=== PATIENT | female | born 2005 | race Caucasian/White ===

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

== ENCOUNTER 2025-04-17 12:58 | Outpatient (AMB) | payer OTHER, SELFPAY ==
--- OUTSIDE RECORDS SUMMARY | 2025-04-17 13:03 | XMS_ITS | Clinical Summary ---
Author Organization [facility] Address [address] [place] [id number] Phone Care Team Providers Care Inventory Specialist Manager Name Role Phone Unavailable Primary Care Provider Unavailabl e Allergies Active Allergy Reactions Criticality Noted Date Comments Environmental 02/21/2018 Medications loratadine (Claritin) 10 MG tabletIndications: Seasonal allergic rhinitis, unspecified trigger Take 1 tablet (10 mg total) by mouth daily. 30 tablet 5 10/28/19 21 Active ondansetron ODT (ondansetron ODT) 4 MG disintegrating tabletIndications: Nausea Take 1 tablet (4 mg total) by mouth every 8 (eight) hours as needed for nausea or vomiting for up to 30 doses. 30 tablet 08/22/19 22 Active Additional Information Patient not taking.Reported on 05/19/2022 albuterol HFA 108 (90 Base) MCG/ACT inhalerIndications :Reactive depression Inhale 2 puffs every 4 (four) hours as needed for wheezing or shortness of breath. 1 Units 1 09/16/19 22 Active Additional Information Patient not taking.Reported on 05/19/2022 escitalopram (Lexapro) 10 MG tabletIndications: Anxiety Take 1 tablet (10 mg total) by mouth every morning. 30 tablet 1 08/11/19 23 Active traZODone 50 MG tabletIndications: Other insomnia TAKE 1/2 TABLET(25 MG) BY MOUTH EVERY NIGHT 15 tablet 09/11/19 23 Active Active Problems Problem Noted Date Diagnosed Date Acute bilateral low back pain without sciatica 1 09/04/2020 Assessment & Plan (07/04/2021 9:20 AM EST): Discussed doing sit ups and plank and leg lifts. Stretching. Generalized abdominal pain 07/04/2021 Assessment & Plan (07/04/2021 9:18 AM EST): Tagamet and Tums OTC. Acquired hammer toe of right foot 2021 Depression 2021 Assessment & Plan (05/01/2022 12:16 PM EDT): Madhu still feels depressed and anxious. She is stressed about school. She was taking the medicine. But somehow her therapist convinced her that it was not working.... but neither mother or Madhu are convinced it helped. We discussed anxiety and the self treatment with CBD and THC. I am understanding the thought, but not confident this is a good treatment. I do suggest they rethink using medication again, and perhaps restarting a different therapist. If we restart we could do celexa as an alternative. F/u prn Assessment & Plan (09/16/2021 4:04 PM EST): She is still having depression and anxiety, but it is much better with the medication. She has a therapist. She will continue on her medication. I have suggest to do things/activities. Otherwise will see her at her PE. Assessment & Plan (2021 3:12 PM EST): I think we are headed the right direction. I suggest to continue on the dose of 25 mg and t recheck in 4 weeks. Call if worsening symptoms or problems. Resolved Problems Problem Noted Date Diagnosed Date Resolved Date Syncope due to orthostatic hypotension 04/09/2020 05/17/2021 Assessment & Plan (04/09/2020 3:27 PM EDT): We discussed her weight loss over the last year. 40 lbs is a lot. She also has been readjusting her sleep pattern. She had woken up earlier than usual, had not eaten anything since the prior day, and had been going up and down stairs from attic to basement and back. Her BP was most likely effected. We discussed eating habits and drinking enough water. Reactive lymphadenopathy 01/16/2020 Assessment & Plan (01/16/2020 2:00 PM EDT): History and physical exam consistent with a reactive lymph node. Reassured patient that at this time I do not have a concern for an infectious or immune system issue. Discussed that this should resolve with time on its own. Reviewed to call back into the office for persistent fevers, redness/swelling/tenderness in this area, or increased swelling of lymph node. Overweight (BMI 25.0-29.9) 03/20/2019 0 03/27/2020 Assessment & Plan (03/20/2019 8:33 AM EDT): BMI over the 85% and more so over the 95% places patient at increased risk for development of diabetes, cardiovascular disease and kidney disease. Discussed these things in this visit. Discussed importance of being active 30 minutes every day. Talked about portion sizes. Discussed cutting out juice and soda. Given thumbs up nutritional information booklet. Will screen for cholesterol, diabetes and elevated liver transaminases. Other acute sinusitis 11/20/20172017 Overview (02/21/2018): Acute sinusitis, other (461.8) Onset: 11/20/2017 Added by: Isaias Slade Acute pharyngitis 11/13/2017 02/21/2018 Overview (02/21/2018): Acute pharyngitis (462) Onset: 11/13/2017 Added by: Isaias Slade Urinary frequency 09/21/2016 02/21/2018 Overview (02/21/2018): Urinary frequency (788.41) Onset: 09/21/2016 Added by: Miya Roland Dysuria 06/09/2015 02/21/2018 Overview (02/21/2018): Dysuria (788.1) Onset: 06/09/2015 Added by: Rosa Valenzuela Disorder of teeth and supporting structures 09/09/2014 02/21/2018 Overview (02/21/2018): Toothache (525.9) Onset: 09/09/2014 Added by: Dorota Gonzalez 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 Overview (02/21/2018): Dry skin (701.1) Onset: 06/29/2014 Added by: Ade Pappas Pneumonia due to other specified organism 11/05/2012 02/21/2018 Overview (02/21/2018): Pneumonia, NEC (483.8) Onset: 11/05/2012 Added by: Shellie Lucas Immunizations Immunization Administration Dates Next Due COVID-19 Pfizer, monovalent, 12+ years 1 DTaP / Hep B / IPV 2004,2004 DTaP 5 08/02/2009,12/12/2005,2004 H1N1 Inj 08/02/2009 HPV Vaccine 9 Valent 06/28/2016,02/24/2016,12/22 Hep A, ped/adol 03/19/2019,02/21/2018 Hep B, ped/adol 2004 Hib (PRP-T) 12/12/2005, 5,2004,08/15 IPV 08/02/2009, 5,2004,08/15 Influenza, injectable, quadr ivalent, preservative free 05/19/2022,05/17/2021,12/11/2014,06/20 Influenza, injectable, trivalent 011,08/02/2009,07/31/2007,06/27 Influenza, injectable, triva lent, preservative free 06/07/2013 MMR 08/02/2009,06/29/2005 Meningococcal Conj (Menactra) MCV4P 05/17/2021,0 12/23/2015 Pneumococcal Conjugate 10/11/2005,2004,2004,08/15 Tdap 12/23/2015 Varicella 08/02/2009,10/11/2005 Family History Medical History Relation Name Comments No Known Problems Father [place] No Known Problems Mother josh Cancer Paternal Grandfather No Known Problems Sister 1 shaheen No Known Problems Sister 2 Karissai Relation Name Status Comments Father [place] Alive Mother josh Alive Paternal Grandfather Alive Sister 1 shaheen Alive Sister 2 Emmieceli Alive Social History Tobacco Use Types Packs/Day Years Used Date Smoking Tobacco: Never Smokeless Tobacco: Never Comments:Never Smoker Hunger/Food Answer Date Recorded In the last 12 months, did y ou or your family ever eat less than you felt you should because there wasn't enough money for food? No 05/19/2022 Stable Housing Answer Date Recorded Are you worried that in the next 2 months you may not have stable housing? No 05/19/2022 Transportation Concerns Answer Date Rec orded In the last 12 months, have you or your family ever had to go without healthcare because you didn't have a way to get there? No 05/19/2022 Hazards in Home Answer Date Recorded Think about the place you li ve. Do you have problems with any of the following? Pests (mice or roaches), mold, no/not working smoke detectors, water leaks, no window guards. No 2021 Financing Utilities Answer Date Recorde d In the last 12 months, has t he electric, gas, oil, or water company threatened to shut off your services in your home? No 05/19/2022 Safety at Home Answer Date Recorded Are you or your family worried about feeling saf e in your home? No 05/19/2022 Outside Support Answer Date Recorded Do you feel that you need mo re support from other people or programs to help you care for yourself or your family? No 05/19/2022 Understanding Health Concerns Answer Da te Recorded Do you need help understandi ng your or your child's healthcare needs (diagnosis, medications, plan, etc.)? No 05/19/2022 Financing Health Concerns Answer Date R ecorded In the last 12 months, was t here a time when your child needed to see a doctor or get medications or supplies but could not because of cost? No 05/19/2022 Missing School or Work Answer Date Miguel rded Did you or your child miss s chool or work because of a health problem that could have been avoided? No 05/19/2022 Comments No Sex and Gender Information Value Date Recorded Sex Assigned at Not on file Legal Sex Female 6:23 PM EDT Gender Identity Not on file Sexual Orientation Not on file Last Filed Vital Signs Vital Sign Reading Time Taken Comments Blood Pressure 112/60 08/11/2022 1:48 PM EST Pulse 53 08/11/2022 1:48 PM EST Temperature 36.3 C (97.3 F) 08/11/2022 1:48 PM EST Respiratory Rate - - Oxygen Saturation - - Inhaled Oxygen Concentration - - Weight 74.1 kg (163 lb 4.8 oz) 08/11/2022 1:48 P M EST Height 167 cm (5' 5.75 ) 08/11/2022 1:48 PM EST Body Mass Index 26.56 08/11/2022 1:48 PM EST Plan of Treatment Health Maintenance Due Date Last Done Comments Men B Vaccine (1 of 2 - Standard) 2020 Influenza Vaccines (#1) 2025 05/19/20 22, 05/17/2021, 12/11/2014, Additional history exists COVID-19 Vaccine (3 - 2024-2 6 season) 2025 03/02/2021, 02/09/2021 DTaP,Tdap,and Td Vaccines (7 - Td or Tdap) 12/22/2025 12/23/2015, 08/02/2009, 12/12/2005, Additional history exists Hepatitis B Vaccines Completed 2004, 2004, 2004 Pneumococcal Vaccine Completed 10/11/2005, 2004, 2004, Additional history exists HIB Vaccines Completed 12/12/2005, 11/28, 2004, Additional history exists IPV Vaccines Completed 08/02/2009, 11/28, 2004, Additional history exists MMR Vaccines Completed 08/02/2009, 06/29/2005 Varicella Vaccines Completed 08/02/2009, 10/11/2005 HPV Vaccines Completed 06/28/2016, 01/28, 12/23/2015 Hepatitis A Vaccines Completed 03/19/2019, 02/22/20 18 Meningococcal Vaccine Completed 05/17/2021, 016 Procedures * Due to [place] [employer] law, this organization might not be sharing sensitive test results. Procedure Name Priority Date/Time Associated Diagnosis Comments CHLAMYDIA AND GONORRHEA, AMPLIFIED Routine 05/17/2021 11:36 AM EDT Encounter for routine child health examination without abnormal findings from Last 3 Months or Most Recently Relevant to Health Maintenance Results * Due to [place] [employer] law, this organization might not be sharing sensitive test results. * Chlamydia and Gonorrhea, Amplified (05/17/2021 11:36 AM EDT) Chlamydia Trachomatis, DNA Probe NEGATIVE (NEG) [facility] Comment: No Chlamydia Trachomatis RNA detected in this patient's sample (REFERENCE RANGE/NORMAL VALUE: NOT DETECTED) Note: This test uses oil heaterman- mediated amplification method to detect rRNA from C. Trachomatis URINE GC AMP PROBE NEGATIVE (NEG) [facility] Comment: No Neisseria Gonorrhoeae RNA detected in this patient's sample (REFERENCE RANGE/NORMAL VALUE: NOT DETECTED) NOTE: This test uses oil heaterman-mediated amplification method to detect rRNA from N.Gonorrhoeae. A negative result does not preclude infection. In the case of a negative urine result, testing of an endocervical(female) or urethral (male) specimen is recommended if there is high clinical suspicion of infection. Due to very high sensitivity of Nucleic Acid Amplification Test, false positive results may occur. Therefore, specimen handling is extremely important. In patients in whom the disease is unlikely, additional sample for testing should be considered after an initial positive result. The performance characteristics of this test have not been evaluated in children. The Aptima Combo2 assay is not intended for the evaluation of suspected sexual abuse or for other medico-legal indications. The ordering provider should assess if the patient had consensual sex without risk of sexual abuse. Consult the [facility] if needed. Contact phone number . Therapeutic failure or success cannot be determined with the Aptima Combo2 assay since nucleic acid may persist following appropriate antimicrobial therapy. The Centers for Disease Control and Prevention (CDC) recommends confirmatory retesting using culture or a different nucleic acid amplification test when positive results occur, if indicated. Testing performed or reported by [facility], a Service of [facility], [facility] [address], [place] [address] Kentrell Burr MD, Block Layer [facility]# [id number] Urine (Vagina) 05/17/2021 11 :36 AM EDT 05/17/2021 8:31 PM EDT us Isaias Slade MD LAB MICROBIOLOGY - GENERAL ORDER NEAL Final Result [facility] from Last 3 Months or Most Recently Relevant to Health Maintenance
--- OUTSIDE RECORDS SUMMARY | 2025-04-17 13:03 | XMS_ITS | Encounter Summary ---
Author Organization [facility] Address [address] [place] [id number] Phone Care Team Providers Care Beer Brewer Name Role Phone Isaias Slade MD Primary Care Provider [phone] Encounter Details Date Type Department Care Team (Late st Contact Info) Description 06/13/2011 Conversion Encounter [facility] [address] [place] [address] Social History Tobacco Use Types Packs/Day Years Used Date Smoking Tobacco: Never Assessed Comments Unknown Sex and Gender Information Value Date Recorded Sex Assigned at Not on file Legal Sex Female 6:23 PM EDT Gender Identity Not on file Sexual Orientation Not on file documented as of this encounter Plan of Treatment Not on file documented as of this encounter Visit Diagnoses Not on filedocumented in this encounter Care Teams Beer Brewer Relationship Specialty Start Date End Date Isaias Slade MD [address] [place] [address] PCP - General 12/05/17 10/05/24 documented as of this encounter
--- OUTSIDE RECORDS SUMMARY | 2025-04-17 13:03 | XMS_ITS | Encounter Summary ---
Author Organization [facility] Address [address] [place] [phone] Phone Care Team Providers Care Government Relations Manager Name Role Phone Isaias Slade MD Primary Care Provider [phone] Reason for Visit * Reason Comments Med Refill Encounter Details Date Type Department Care Team ([facility] st Contact Info) Description 09/18/2021 Refill [facility] [address] [place] [address] [place] [address] Isaias Slade MD [address] [place] [address] [place] [address] Social History Tobacco Use Types Packs/Day Years Used Date Smoking Tobacco: Never Smokeless Tobacco: Never Comments:Never Smoker Hunger/Food Answer Date Recorded In the last 12 months, did y ou or your family ever eat less than you felt you should because there wasn't enough money for food? No 03/24/2020 Stable Housing Answer Date Recorded Are you worried that in the next 2 months you may not have stable housing? No 03/24/2020 Transportation Concerns Answer Date Rec orded In the last 12 months, have you or your family ever had to go without healthcare because you didn't have a way to get there? No 03/24/2020 Hazards in Home Answer Date Recorded Think about the place you li ve. Do you have problems with any of the following? Pests (mice or roaches), mold, no/not working smoke detectors, water leaks, no window guards. No 2019 Financing Utilities Answer Date Recorde d In the last 12 months, has t he electric, gas, oil, or water company threatened to shut off your services in your home? No 03/24/2020 Safety at Home Answer Date Recorded Are you or your family worried about feeling saf e in your home? No 03/24/2020 Outside Support Answer Date Recorded Do you feel that you need mo re support from other people or programs to help you care for yourself or your family? No 03/24/2020 Understanding Health Concerns Answer Da te Recorded Do you need help understandi ng your or your child's healthcare needs (diagnosis, medications, plan, etc.)? No 03/24/2020 Financing Health Concerns Answer Date R ecorded In the last 12 months, was t here a time when your child needed to see a doctor or get medications or supplies but could not because of cost? No 03/24/2020 Missing School or Work Answer Date Miguel rded Did you or your child miss s chool or work because of a health problem that could have been avoided? No 03/24/2020 Comments No Sex and Gender Information Value Date Recorded Sex Assigned at Not on file Legal Sex Female 6:23 PM EDT Gender Identity Not on file Sexual Orientation Not on file documented as of this encounter Plan of Treatment Not on file documented as of this encounter Visit Diagnoses Not on filedocumented in this encounter Care Teams Government Relations Manager Relationship Specialty Start Date End Date Isaias Slade MD [facility] [facility] [facility] [place] [address] PCP - General 12/05/17 10/05/24 documented as of this encounter
--- NOTE | 2025-04-17 13:05 | MHC.PC.OV ---
Vital Signs 04/17/25 13:08 Height 5 ft 6.14 in Weight 150 lb 8 oz BMI 24.2 BP 120/60 Blood Pressure Location Lt brachial Position Sitting Pulse 74 Pulse Source Pulse Oximeter Temp 97.1 F Temp Source Temporal Artery Scan Pulse Oximetry (%) 98 Oxygen Delivery Method Room Air Intake Visit Reasons: establish care Intake Note: Patient is a new patient here to [facility] care for Anxiety, Depression. Transferring care from Klarissa Wyatt ([facility]). Medical records have been requested and have not received. Complaint of congestion, cough, and chills, back pain no home test for covid. 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 Coal Picker: Not Required per policy Accompanied by: Self / Same As Patient Allergies No Known Allergies (No Known Allergies*) Allergy (Verified 04/17/25 13:06) Medication List - Last Reconciled 04/17/25 by Helga Peters MD No Known Home Meds Tobacco use date assessed: 04/17/25 Dental Screening Dental Screen Date: 04/17/25 Did you have a dental visit in the last 12 months?: No Did you have a dental problem in the last 6 months where you did not have access to dental care?: No Was dental information given to patient?: Patient has dentist HPI HPI Comments History of Present Illness Details The patient is a 19-year-old female presenting to [facility]. The back pain was reported during the visit, but no specific details regarding onset or severity were provided. The patient also reported congestion and feeling generally unwell since Sunday, with associated chills but no fever. She has been using [id number] medications, including a muscle relaxer and cough medicine, with minimal relief. The patient has a history of depression and anxiety, which began in middle school and has fluctuated over the years. She experienced severe episodes during her freshman and senior years of high school, including suicidal ideation and self-harm. Currently, she reports feeling tired and having difficulty focusing, which she attributes to her ongoing mental health challenges. The patient has been using cannabis daily, primarily at night, and has been attempting to reduce her usage. She denies the use of tobacco and other substances. 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 She has previously tried antidepressants, specifically Lexapro, but discontinued due to initial worsening of symptoms. [facility] Surgical History (Updated 04/17/25 @ 13:16 by CATRACHITO Spence) No pertinent past surgical history Social History (Updated 04/17/25 @ 13:17 by CATRACHITO Spence) Housing: House Alcohol intake: current Alcohol intake frequency: does not drink Alcohol type: hard liquor Patient Tobacco Use Status: Never used Tobacco e-Cigarette/Vaping Use: Never Used Second Hand Smoke Exposure: No Substance Use Type: Marijuana service: No Current occupational status: student Cognitive needs: No Hearing needs: No Vision needs: No Questionnaire PHQ-9 Over the last 2 weeks, how often have you been bothered by any of the following problems? 1. Little interest or pleasure in doing things: nearly every day 2. Feeling down, depressed, or hopeless: nearly every day 3. Trouble falling or staying asleep, or sleeping too much: several days 4. Feeling tired or having little energy: more than half the days 5. Poor appetite or overeating: more than half the days 6. Feeling bad about yourself - or that you are a failure or have let yourself or your family down: nearly every day 7. Trouble concentrating on things, such as reading the newspaper or watching television: nearly every day 8. Moving or speaking so slowly that other people could have noticed. Or the opposite - being so fidgety or restless that you have been moving around a lot more than usual: nearly every day 9. Thoughts that you would be better off or of hurting yourself in some way: nearly every day Total score: 23 Depression Screening Interpretation: Positive Depression Screening Done: Yes Source: Developed by Drs. Cr Fernandez, Akiko Astudillo, Carlos Ovalle and colleagues, with an educational daisy from [employer]. Thrive Questionnaire Date Thrive assessed: 04/17/25 I am a: Patient What is your living situation today?: I have a steady place to live Within the past 12 months, did the food you bought not last and you didn't have the money to get more?: Never true Within the past 12 months, did you worry whether your food would run out before you got money to buy more?: Never true Do you have trouble paying for medicines?: No Do you have trouble getting transportation to medical appointments?: No Do you have trouble paying your heating and electricity bill?: No Do you have trouble taking care of your child, family member or friend?: I choose not to answer this question Do you have trouble with day-to-day activities such as bathing, preparing meals, shopping, managing finances, etc.?: Yes Are you currently unemployed and looking for a job?: Yes Are you interested in more education?: I choose not to answer this question Please select the resources that you would like help with: None Currently or been in a relationship where the following occur: No concerns reported THRIVE Score: 0 AUDIT C Alcohol Use Questionnaire (AUDIT-C) 1. How often do you have a drink containing alcohol?: Never Total Score: 0 DINAH-7 AMB Questionnaire DINAH-7 Date DINAH - 7 assessed: 04/17/25 Feeling nervous, anxious, or on edge: 3 = Nearly every day Not being able to stop or control worryin = Nearly every day Worrying too much about different things: 3 = Nearly every day Trouble relaxin = Nearly every day Being so restless that it is hard to sit still: 3 = Nearly every day Becoming easily annoyed or irritable: 2 = More than half the days Feeling afraid as if something awful might happen: 2 = More than half the days Total DINAH-7 score (0-4 normal; 5-9 mild; 10-14 moderate; 15-21 severe): 19 Source: Developed by Drs. Cr Fernandez, Akiko Astudillo, Carlos Ovalle and colleagues, with an educational daisy from [employer]. Review of Systems Const Details: Positives besides what was mentioned in HPI are in BOLD Constitutional: No Weight Change, No Fever, No Chills, No Night Sweats, No Fatigue, No Malaise ENT/Mouth: No Hearing Changes, No Ear Pain, No Nasal Congestion, No Sinus Pain, No Hoarseness, No sore throat, No Rhinorrhea, No Swallowing Difficulty Eyes: No Eye Pain, No Swelling, No Redness, No Foreign Body, No Discharge, No Vision Changes Cardiovascular: No Chest Pain, No SOB, No PND, No Dyspnea on Exertion, No Orthopnea, No Claudication, No Edema, No Palpitations Respiratory: No Cough, No Sputum, No Wheezing, No Smoke Exposure, No Dyspnea Gastrointestinal: No Nausea, No Vomiting, No Diarrhea, No Constipation, No Pain, No Heartburn, No Anorexia, No Dysphagia, No Hematochezia, No Melena, No Flatulence, No Jaundice Genitourinary: No Dysmenorrhea, No DUB, No Dyspareunia, No Dysuria, No Urinary Frequency, No Hematuria, No Urinary Incontinence, No Urgency, No Flank Pain, No Urinary Flow Changes, No Hesitancy Musculoskeletal: No Arthralgias, No Myalgias, No Joint Swelling, No Joint Stiffness, No Back Pain, No Neck Pain, No Injury History Skin: No Skin Lesions, No Pruritis, No Hair Changes, No Breast/Skin Changes, No Nipple Discharge Neuro: No Weakness, No Numbness, No Paresthesias, No Loss of Consciousness, No Syncope, No Dizziness, No Headache, No Coordination Changes, No Recent Falls Psych: No Anxiety/Panic, No Depression, No Insomnia, No Personality Changes, No Delusions, No Rumination, No SI/HI/AH/VH, No Social Issues, No Memory Changes, No Violence/Abuse Hx., No Eating Concerns Heme/Lymph: No Bruising, No Bleeding, No Transfusions History, No Lymphadenopathy Endocrine: No Polyuria, No Polydipsia, No Temperature Intolerance Physical exam (Primary Care) Vital Signs: Last Vital Signs Temp 97.1 F 04/17/25 13:08 Pulse 74 04/17/25 13:08 BP 120/60 04/17/25 13:08 Pulse Ox 98 04/17/25 13:08 Oxygen Delivery Method Room Air 04/17/25 13:08 BMI result Body Mass Index 24.2 Tobacco/Smoking Status: Tobacco use Status Tobacco use date assessed 04/17/25 04/17/25 13:18 Patient Tobacco Use Status Never used Tobacco 04/17/25 13:18 e-Cigarette/Vaping Use Never Used 04/17/25 13:18 PHQ-9: PHQ-9 Score PHQ-9: Total score 23 04/17/25 13:18 Depression Screening Interpretation: Positive Thrive Assessment: Date of Thrive Assessment Date Thrive assessed 04/17/25 04/17/25 13:18 Currently or been in a relationship where the following occur: No concerns reported Const Other: Pertinent findings are in BOLD GENERAL APPEARANCE NAD, activity normal for age, well developed/ well nourished, no cyanosis, pallor, or diaphoresis. EYES lids/conjunctiva normal. EARS/NOSE/THROAT Mucous membranes moist, nares normal, lips/teeth normal uvula midline without oral pharyngeal erythema, exudate or swelling TMs normal bilaterally. No lymphangitis/lymphedema. HEAD/NECK normocephalic atraumatic, no facial trauma, neck is supple. RESPIRATORY respiratory effort normal, speaks in full sentences, no tripod position, no accessory muscle use. Lungs clear to auscultation without rhonchi, wheezes, rales CARDIAC Regular rate and rhythm, no edema. ABDOMINAL Soft, ND/NT. No evidence of fluid wave. No pulsatile masses on exam, rebound tenderness, Herron sign or pain over Mcburney's point. MUSCLES/EXTREMITIES No abnormal range of motion, no swelling. SKIN Warm, pink and dry. No rashes, dermatoses, petechiae or lesions. NEUROLOGICAL Speech is clear and appropriate. Normal level of consciousness. Gait and coordination are normal. 5/5 strength in all extremities. PSYCH Normal mood and affect. Judgement/competence is appropriate Coding Level of Care Code New Pt Level 4 (41205) Diagnoses Major depressive disorder with single episode, remission status unspecified F32.9 Major depression recurrence: single episode Active/Remission status: remission status unspecified Congestion of nasal sinus R09.81 DINAH (generalized anxiety disorder) F41.1 Healthcare maintenance Z00.00 Assessment & Plan Assessment & Plan (1) MDD (major depressive disorder): Code(s): F32.9 - Major depressive disorder, single episode, unspecified Category: Medical Qualifiers: Major depression recurrence: single episode Active/Remission status: remission status unspecified Qualified Code(s): F32.9 - Major depressive disorder, single episode, unspecified Plan: Bupropion Daily. Referred to behavioral health. Nursing navigator referral. (2) Congestion of nasal sinus: Code(s): R09.81 - Nasal congestion Category: Medical Plan: Most likely viral. CTM. (3) DINAH (generalized anxiety disorder): Code(s): F41.1 - Generalized anxiety disorder Category: Medical Plan: Same as under MDD. (4) Healthcare maintenance: Code(s): Z00.00 - Encounter for general adult medical examination without abnormal findings Category: Medical Plan: CBC, CMP, Lipid panel, A1C, TSH w T4. NExt visit. Patient reports completing COVID. HPV: Next year. HIV: Next visit. HBV: Next visit. HCV: Next visit. Plan During the visit, I discussed the patient's history of depression and anxiety, emphasizing the importance of therapy and considering medication options such as Wellbutrin. I explained the potential benefits and side effects of Wellbutrin, highlighting its role in improving mood and focus. We also discussed the patient's cannabis use and the importance of reducing it. I recommended follow-up in one month to assess the patient's response to any initiated treatments and to adjust the plan as needed. Orders: Referrals Behavioral Health Referral F32.9 - Major depressive disorder, single episode, unspecified, F41.1 - Generalized anxiety disorder Nurse Navigator Referral F32.9 - Major depressive disorder, single episode, unspecified, F41.1 - Generalized anxiety disorder Medications: New bupropion HCl XL (Wellbutrin XL) 150 mg PO QAM 30 tabs 0RF
[2025-04-17 13:08] VITALS: BP 120/60; PULSE 74; TEMP 36.2; O2SAT 98; BMI 24.2
== END 2025-04-17 13:46 | disposition home or self-care (01) ==
LOC: HO.HMCH 13:00
PROVIDERS: Visit Provider Internal Medicine
DX: F32.9 Major depressive disorder, single episode, unspecified (principal); R09.81 Nasal congestion; F41.1 Generalized anxiety disorder; Z00.00 Encounter for general adult medical examination without abnormal findings

== ENCOUNTER 2025-04-24 13:54 | Outpatient (AMB) | payer OTHER, SELFPAY ==
--- NOTE | 2025-04-24 14:05 | MHC.PC.OV ---
Vital Signs 04/24/25 14:06 Height 5 ft 6.14 in Weight 155 lb 8 oz BMI 25.0 BP 100/60 Blood Pressure Location Lt brachial Position Sitting Pulse 83 Pulse Source Pulse Oximeter Temp 97.1 F Temp Source Temporal Artery Scan Pulse Oximetry (%) 95 Oxygen Delivery Method Room Air Intake Visit Reasons: back pain Intake Note: Patient is here to follow up on Back pain. 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 The pain started approximately a week ago and is described as sharpish, located in the right hip. The patient has been using lidocaine patches and zhxn-azz-qcvoiox medications, including Tylenol and ibuprofen, with limited relief. The pain does not improve with rest and is exacerbated by movement, such as standing or sitting. There is no associated fever, chills, or joint pain, and the patient denies any changes in bowel or urinary habits. The patient is concerned about the possibility of a pinched nerve, although the pain does not align with typical nerve pain patterns. [facility] Surgical History No pertinent past surgical history Social History Housing: House Alcohol intake: current Alcohol intake frequency: does not drink Alcohol type: hard liquor Patient Tobacco Use Status: Never used Tobacco e-Cigarette/Vaping Use: Never Used Second Hand Smoke Exposure: No Substance Use Type: Marijuana service: No Current occupational status: student Cognitive needs: No Hearing needs: No Vision needs: No Questionnaire Thrive Questionnaire Date Thrive assessed: 04/17/25 I am a: Patient What is your living situation today?: I have a steady place to live Within the past 12 months, did the food you bought not last and you didn't have the money to get more?: Never true Within the past 12 months, did you worry whether your food would run out before you got money to buy more?: Never true Do you have trouble paying for medicines?: No Do you have trouble getting transportation to medical appointments?: No Do you have trouble paying your heating and electricity bill?: No Do you have trouble taking care of your child, family member or friend?: I choose not to answer this question Do you have trouble with day-to-day activities such as bathing, preparing meals, shopping, managing finances, etc.?: Yes Are you currently unemployed and looking for a job?: Yes Are you interested in more education?: I choose not to answer this question Please select the resources that you would like help with: None Currently or been in a relationship where the following occur: No concerns reported THRIVE Score: 0 DINAH-7 AMB Questionnaire DINAH-7 Date DINAH - 7 assessed: 04/17/25 Source: Developed by Drs. rC Fernandez, Akiko Astudillo, Carlos Ovalle and colleagues, with an educational daisy from [employer]. Review of Systems Const Details: Positives besides what was mentioned in HPI are in BOLD Constitutional: No Weight Change, No Fever, No Chills, No Night Sweats, No Fatigue, No Malaise ENT/Mouth: No Hearing Changes, No Ear Pain, No Nasal Congestion, No Sinus Pain, No Hoarseness, No sore throat, No Rhinorrhea, No Swallowing Difficulty Eyes: No Eye Pain, No Swelling, No Redness, No Foreign Body, No Discharge, No Vision Changes Cardiovascular: No Chest Pain, No SOB, No PND, No Dyspnea on Exertion, No Orthopnea, No Claudication, No Edema, No Palpitations Respiratory: No Cough, No Sputum, No Wheezing, No Smoke Exposure, No Dyspnea Gastrointestinal: No Nausea, No Vomiting, No Diarrhea, No Constipation, No Pain, No Heartburn, No Anorexia, No Dysphagia, No Hematochezia, No Melena, No Flatulence, No Jaundice Genitourinary: No Dysmenorrhea, No DUB, No Dyspareunia, No Dysuria, No Urinary Frequency, No Hematuria, No Urinary Incontinence, No Urgency, No Flank Pain, No Urinary Flow Changes, No Hesitancy Musculoskeletal: No Arthralgias, No Myalgias, No Joint Swelling, No Joint Stiffness, No Back Pain, No Neck Pain, No Injury History Skin: No Skin Lesions, No Pruritis, No Hair Changes, No Breast/Skin Changes, No Nipple Discharge Neuro: No Weakness, No Numbness, No Paresthesias, No Loss of Consciousness, No Syncope, No Dizziness, No Headache, No Coordination Changes, No Recent Falls Psych: No Anxiety/Panic, No Depression, No Insomnia, No Personality Changes, No Delusions, No Rumination, No SI/HI/AH/VH, No Social Issues, No Memory Changes, No Violence/Abuse Hx., No Eating Concerns Heme/Lymph: No Bruising, No Bleeding, No Transfusions History, No Lymphadenopathy Endocrine: No Polyuria, No Polydipsia, No Temperature Intolerance Physical exam (Primary Care) Vital Signs: Last Vital Signs Temp 97.1 F 04/24/25 14:06 Pulse 83 04/24/25 14:06 BP 100/60 04/24/25 14:06 Pulse Ox 95 04/24/25 14:06 Oxygen Delivery Method Room Air 04/24/25 14:06 BMI result Body Mass Index 25.0 Tobacco/Smoking Status: Tobacco use Status Tobacco use date assessed 04/24/25 04/24/25 14:11 Patient Tobacco Use Status Never used Tobacco 04/24/25 14:11 e-Cigarette/Vaping Use Never Used 04/24/25 14:11 Thrive Assessment: Date of Thrive Assessment Date Thrive assessed 04/17/25 04/24/25 14:11 Currently or been in a relationship where the following occur: No concerns reported Const Other: Pertinent findings are in BOLD GENERAL APPEARANCE NAD, activity normal for age, well developed/ well nourished, no cyanosis, pallor, or diaphoresis. EYES lids/conjunctiva normal. EARS/NOSE/THROAT Mucous membranes moist, nares normal, lips/teeth normal uvula midline without oral pharyngeal erythema, exudate or swelling TMs normal bilaterally. No lymphangitis/lymphedema. HEAD/NECK normocephalic atraumatic, no facial trauma, neck is supple. RESPIRATORY respiratory effort normal, speaks in full sentences, no tripod position, no accessory muscle use. Lungs clear to auscultation without rhonchi, wheezes, rales CARDIAC Regular rate and rhythm, no edema. ABDOMINAL Soft, ND/NT. No evidence of fluid wave. No pulsatile masses on exam, rebound tenderness, Herron sign or pain over Mcburney's point. MUSCLES/EXTREMITIES No abnormal range of motion, no swelling. MSK: Lidocaine patch on left lower back. SKIN Warm, pink and dry. No rashes, dermatoses, petechiae or lesions. NEUROLOGICAL Speech is clear and appropriate. Normal level of consciousness. Gait and coordination are normal. 5/5 strength in all extremities. PSYCH Normal mood and affect. Judgement/competence is appropriate Coding Level of Care Code Est Pt Level 3 (97910) Diagnoses Low back pain M54.50 Time Spent (min) 20 Assessment & Plan Assessment & Plan (1) Low back pain: Code(s): M54.50 - Low back pain, unspecified Category: Medical Plan: - Prescribed naproxen for two weeks to manage pain. - Advised to continue using lidocaine patches. - Recommended maintaining normal activities unless severe pain occurs. - Follow-up planned to assess pain management and consider imaging if no improvement. Plan I discussed with the patient that the pain is likely musculoskeletal and not indicative of a serious condition like a fracture. We agreed to try naproxen for two weeks and continue with lidocaine patches. I advised maintaining normal activities and reassured that imaging could be considered if symptoms do not improve. Medications: New naproxen 250 mg PO BID PRN 30 tabs 0RF pain
[2025-04-24 14:06] VITALS: BP 100/60; PULSE 83; TEMP 36.2; O2SAT 95; BMI 25.0
--- OUTSIDE RECORDS SUMMARY | 2025-04-24 15:03 | XMS_ITS | Encounter Summary ---
Author Organization [facility] Address [address] [place] [id number] Phone Care Team Providers Care Monitoring Analyst Name Role Phone Isaias Slade MD Primary Care Provider [phone] Reason for Visit * Reason Comments Med Refill Encounter Details Date Type Department Care Team ([facility] st Contact Info) Description 09/18/2021 Refill [facility] [address] [place] [address] [place] [id number] Isaias Slade MD [address] [place] [address] [place] [phone] Social History Tobacco Use Types Packs/Day Years [...] on filedocumented in this encounter Care Teams Monitoring Analyst Relationship Specialty Start Date End Date Isaias Slade MD [facility] [facility] [place] [address] PCP - General 12/05/17 10/05/24 documented as of this encounter
--- OUTSIDE RECORDS SUMMARY | 2025-04-24 15:04 | XMS_ITS | Encounter Summary ---
Author Organization [facility] Address [address] [place] [phone] Phone Care Team Providers Care Sample Carrier Name Role Phone Isaias Slade MD Primary Care Provider [phone] Encounter Details Date Type Department Care Team (Late st Contact Info) Description 06/13/2011 Conversion Encounter [facility] [address] [facility] [place] [address] Social History Tobacco Use Types Packs/Day Years [...] on filedocumented in this encounter Care Teams Sample Carrier Relationship Specialty Start Date End Date Isaias Slade MD [address] [facility] [place] [address] PCP - General 12/05/17 10/05/24 documented as of this encounter
--- OUTSIDE RECORDS SUMMARY | 2025-04-24 15:04 | XMS_ITS | Clinical Summary ---
Author Organization [facility] Address [address] [place] [phone] Phone Care Team Providers Care Pet Technologist Name Role Phone Unavailable Primary Care Provider [...] 05/17/2021, 016 Procedures * Due to [place] [employer] law, this organization might not be sharing sensitive test results. Procedure Name Priority Date/Time Associated Diagnosis Comments CHLAMYDIA AND GONORRHEA, AMPLIFIED Routine 05/17/2021 11:36 AM EDT Encounter for routine child health examination without abnormal findings from Last 3 Months or Most Recently Relevant to Health Maintenance Results * Due to [place] [employer] law, this organization might not be sharing sensitive test results. * Chlamydia and Gonorrhea, Amplified (05/17/2021 11:36 AM EDT) Chlamydia Trachomatis, DNA Probe NEGATIVE (NEG) [facility] Comment: No Chlamydia Trachomatis RNA detected in this patient's sample (REFERENCE RANGE/NORMAL VALUE: NOT DETECTED) Note: This test uses community director- mediated amplification method to detect rRNA from C. Trachomatis URINE GC AMP PROBE NEGATIVE (NEG) [facility] Comment: No Neisseria Gonorrhoeae RNA detected in this patient's sample (REFERENCE RANGE/NORMAL VALUE: NOT DETECTED) NOTE: This test uses community director-mediated amplification method to detect rRNA from N.Gonorrhoeae. [...] without risk of sexual abuse. Consult the [facility] if needed. Contact phone [...] by [facility], a Service of [facility], [facility] Elizabeth [address], [place] [address] Kentrell Burr MD, Air And Water Tester [facility]# [id number] Urine (Vagina) 05/17/2021 11 :36 AM EDT 05/17/2021 8:31 PM EDT us Isaias Slade MD LAB MICROBIOLOGY - GENERAL ORDER NEAL Final Result [facility] from Last 3 Months or Most Recently Relevant to Health Maintenance
--- OUTSIDE RECORDS SUMMARY | 2025-04-24 15:04 | XMS_ITS | Patient Health Record ---
Author Organization [facility] jerson [place] Address [address] [place] [address] Care Team Providers Care Meter Attendant Name Role Phone Yany GATICA, Isaias Primary Care Provider Flores Polo Unavailable [phone] Allergies No Known Allergies Reason For Referral No Information Immunizations Vaccine Route Administration Date Status Comme nts COVID-19 Pfizer BioNTech Vaccine Unknown 02/09/2021 Administered #2: 03/02/2021 Social History Tobacco Use: Social History Observation Description Date Details (start date - stop date) Never Smoker NA - NA Tobacco Use/Smoking Question Answer Notes Are you a: nonsmoker Alcohol Screen Question Answer Notes Did you have a drink containing alcohol in the p ast year? No Points 0 Interpretation Negative Tobacco use other than smoking: Question Answer Notes Are you an other tobacco user? No Problems Problem Type SNOMED Code ICD Code Onset Dates Problem Status W/U Status Risk Notes Problem Acquired hammer toe of right foot (0944353485846 105) Hammer toe of right foot (M20.41) Active confirmed Problem Acquired hammer toe of left foot ([id number] 103) Hammer toe of left foot (M20.42) Active confirmed Plan Of Treatment No Information Insurance Providers Payer Name Payer Address Payer Phone Subscriber Number Group Number Insured Name Patient Relationship to Insured Coverage Start Date Coverage End Date [facility] [address] [facility] [address] [phone] [id number] [place] Pope Child - Insured has Financial Responsibility Medical (General) History Surgical History Surgery Date(Month/Year)
== END 2025-04-24 14:43 | disposition home or self-care (01) ==
LOC: HO.HMCH 13:54
PROVIDERS: Visit Provider Internal Medicine
DX: M54.50 Low back pain, unspecified (principal)

== ENCOUNTER 2025-05-14 11:17 | Outpatient (REF) | payer OTHER, SELFPAY ==
--- NOTE | ~2025-05-14 | XR_ITS ---
EXAMINATION: XR LUMBAR SPINE 2-3 VIEWS HISTORY: M54.50 - Low back pain, unspecified COMPARISON: There are no prior studies for comparison. FINDINGS: AP, lateral, and coned down views of the lumbar spine are submitted. Osseous mineralization is normal. Five nonrib-bearing lumbar vertebral bodies are identified, maintaining normal height and alignment without evidence of fracture or spondylolisthesis. The intervertebral disc spaces are preserved. The posterior elements are intact. The visualized paraspinal soft tissues are unremarkable. XR/XR lumbar spine 2-3V IMPRESSION: Unremarkable examination of the lumbar spine. Electronically signed by: Cr Santillan MD 05/14/2025 12:08 PM EDT
--- NOTE | ~2025-05-14 | XR_ITS ---
EXAMINATION: XR BILATERAL HIPS WITH AP PELVIS CLINICAL INFORMATION: M54.50 - Low back pain, unspecified COMPARISON: None available. TECHNIQUE: AP and oblique views both hips FINDINGS: No acute cortical disruption or malalignment. No lytic or blastic lesions. There is preservation of the joint spaces of the coxofemoral joints. No metallic or radiopaque foreign body. No subcutaneous emphysema. Sclerosis and the inferior right sacroiliac joint. XR/XR hips SILVANO min 3V IMPRESSION: Normal x-ray hips. . Electronically signed by: Arnaldo Zuñiga MD 05/14/2025 12:09 PM EDT
--- OUTSIDE RECORDS SUMMARY | 2025-05-14 14:34 | XMS_ITS | Clinical Summary ---
Author Organization [facility] Address [address] [place] [address] Phone Care Team Providers Care Audiovisual Technician Name Role Phone Unavailable Primary Care Provider [...] Completed 05/17/2021, 016 Procedures * Due to [place] law, this organization might not be sharing sensitive test results. Procedure Name Priority Date/Time Associated Diagnosis Comments CHLAMYDIA AND GONORRHEA, AMPLIFIED Routine 05/17/2021 11:36 AM EDT Encounter for routine child health examination without abnormal findings from Last 3 Months or Most Recently Relevant to Health Maintenance Results * Due to [place] law, this organization might not be sharing sensitive test results. * Chlamydia and Gonorrhea, Amplified (05/17/2021 11:36 AM EDT) Chlamydia Trachomatis, DNA Probe NEGATIVE (NEG) [facility] Comment: No Chlamydia Trachomatis RNA detected in this patient's sample (REFERENCE RANGE/NORMAL VALUE: NOT DETECTED) Note: This test uses ultrasonic welding machine operator- mediated amplification method to detect rRNA from C. Trachomatis URINE GC AMP PROBE NEGATIVE (NEG) [facility] Comment: No Neisseria Gonorrhoeae RNA detected in this patient's sample (REFERENCE RANGE/NORMAL VALUE: NOT DETECTED) NOTE: This test uses ultrasonic welding machine operator-mediated amplification method to detect rRNA from N.Gonorrhoeae. [...] without risk of sexual abuse. Consult the [facility] if needed. Contact phone [...] by [facility], a Service of [facility], [facility] [address], [place] [address] Kentrell Burr MD, Robotic Toy Inventor [facility]# [id number] Urine (Vagina) 05/17/2021 11 :36 AM EDT 05/17/2021 8:31 PM EDT us Isaias Slade MD LAB MICROBIOLOGY - GENERAL ORDER NEAL Final Result [facility] from Last 3 Months or Most Recently Relevant to Health Maintenance
--- OUTSIDE RECORDS SUMMARY | 2025-05-14 14:34 | XMS_ITS | Patient Health Record ---
Author Organization [facility] Address [address] [facility] [address] Care Team Providers Care Tightener Name Role Phone Yany GATICA, Isaias Primary Care Provider Flores Polo Unavailable [phone] Allergies No Known Allergies Reason For Referral [...] Problem Acquired hammer toe of right foot ([id number] 105) Hammer toe of right foot (M20.41) Active confirmed Problem Acquired hammer toe of left foot ([id number] 103) Hammer toe of left foot (M20.42) Active confirmed Plan Of Treatment No Information Insurance Providers Payer Name Payer Address Payer Phone Subscriber Number Group Number Insured Name Patient Relationship to Insured Coverage Start Date Coverage End Date [facility] [address] [facility] [address] [id number] [place] Pope Child - Insured has Financial Responsibility Medical (General) History Surgical History Surgery Date(Month/Year)
--- OUTSIDE RECORDS SUMMARY | 2025-05-14 14:34 | XMS_ITS | Encounter Summary ---
Author Organization [facility] Address [address] [place] [address] Phone Care Team Providers Care Counter Stacker Name Role Phone Isaias Slade MD Primary Care Provider [phone] Encounter Details Date Type Department Care Team (Late st Contact Info) Description 06/13/2011 Conversion Encounter [facility] [address] [place] [address] Social History Tobacco Use Types Packs/Day Years [...] on filedocumented in this encounter Care Teams Counter Stacker Relationship Specialty Start Date End Date Isaias Slade MD [address] [place] [address] PCP - General 12/05/17 10/05/24 documented as of this encounter
--- OUTSIDE RECORDS SUMMARY | 2025-05-14 14:34 | XMS_ITS | Encounter Summary ---
Author Organization [facility] Address [address] [place] [address] Phone Care Team Providers Care Event Host Name Role Phone Isaias Slade MD Primary Care Provider [phone] Reason for Visit * Reason Comments Med Refill Encounter Details Date Type Department Care Team ([facility] st Contact Info) Description 09/18/2021 Refill [facility] [address] [place] [address] [place] [address] Isaias Slade MD [address] [place] [address] [place] [address] Social History Tobacco Use Types Packs/Day Years [...] on filedocumented in this encounter Care Teams Event Host Relationship Specialty Start Date End Date Isaias Slade MD [facility] [place] [address] PCP - General 12/05/17 10/05/24 documented as of this encounter
== END 2025-05-14 11:18 | disposition home or self-care (01) ==
LOC: HO.XRAY 11:17
PROVIDERS: PCP Internal Medicine; Visit Provider Internal Medicine
DX: M54.50 Low back pain, unspecified (principal)
CPT/HCPCS: 72100; 73522

== ENCOUNTER → 2025-05-14 11:23 | Outpatient (BNV) | payer OTHER, SELFPAY | PROVIDERS: PCP Internal Medicine; Visit Provider Radiology Diagnostic Radiology | DX: M54.50 Low back pain, unspecified (principal) | CPT/HCPCS: 72100; 73522 ==

== ENCOUNTER 2025-06-08 14:26 | Outpatient (AMB) | payer OTHER, SELFPAY ==
--- NOTE | 2025-06-08 14:38 | A.OFFPC_ITS ---
Vital Signs 06/08/25 14:39 Height 5 ft 6.14 in Weight 149 lb 4 oz BMI 24.0 BP 100/66 Blood Pressure Location Lt brachial Position Sitting Pulse 81 Pulse Source Pulse Oximeter Temp 97.3 F Temp Source Temporal Artery Scan Pulse Oximetry (%) 99 Oxygen Delivery Method Room Air Intake Visit Reasons: Pain hip to the leg Intake Note: Patient is here to follow up on Pain from right hip to leg. Salesperson Burial Needs Required: No Structural Fitter: Present Accompanied by: Mother Allergies No Known Allergies (No Known Allergies*) Allergy (Verified 06/08/25 14:39) Medication List - Last Reconciled 06/08/25 by Helga Peters MD naproxen 250 mg PO BID PRN Tobacco use date assessed: 06/08/25 Dental Screening Dental Screen Date: 04/17/25 HPI HPI Comments History of Present Illness Details The patient is a 19-year-old female with PMH of mood disorder and low back pain presenting for evaluation of worsening pain in right her hip and leg. The pain has been present for approximately two months and is constant, affecting her ability to sit. Her mood has been negatively impacted by the persistent pain. A previous X-ray of the area was negative and did not show any acute fractures. She has tried medications, including naproxen and a patch, which only provided temporary relief. The patient reports increasing her exercise regimen, but it has not helped to resolve the pain. She has not previously tried physical therapy. The patient denies any fever or chills. Family history is notable for her father having back issues, which included an infection at one time. Regarding her medications, the patient reports she is no longer taking Wellbutrin (bupropion). [facility] Surgical History No pertinent past surgical history Social History (Updated 06/08/25 @ 14:43 by CATRACHITO Spence) Housing: House Alcohol intake: current Alcohol intake frequency: does not drink Alcohol type: hard liquor Patient Tobacco Use Status: Never used Tobacco e-Cigarette/Vaping Use: Never Used Second Hand Smoke Exposure: No Substance Use Type: Marijuana Substance Use Frequency: Socially service: No Current occupational status: student Cognitive needs: No Hearing needs: No Vision needs: No Questionnaire Thrive Questionnaire Date Thrive assessed: 04/17/25 I am a: Patient What is your living situation today?: I have a steady place to live Within the past 12 months, did the food you bought not last and you didn't have the money to get more?: Never true Within the past 12 months, did you worry whether your food would run out before you got money to buy more?: Never true Do you have trouble paying for medicines?: No Do you have trouble getting transportation to medical appointments?: No Do you have trouble paying your heating and electricity bill?: No Do you have trouble taking care of your child, family member or friend?: I choose not to answer this question Do you have trouble with day-to-day activities such as bathing, preparing meals, shopping, managing finances, etc.?: Yes Are you currently unemployed and looking for a job?: Yes Are you interested in more education?: I choose not to answer this question Please select the resources that you would like help with: None Currently or been in a relationship where the following occur: No concerns reported THRIVE Score: 0 DINAH-7 AMB Questionnaire DINAH-7 Date DINAH - 7 assessed: 04/17/25 Source: Developed by Drs. Cr Fernandez, Akiko Astudillo, Carlos Ovalle and colleagues, with an educational daisy from [employer]. Review of Systems Const Details: As per HPI. Physical exam (Primary Care) Vital Signs: Last Vital Signs Temp 97.3 F 06/08/25 14:39 Pulse 81 06/08/25 14:39 BP 100/66 06/08/25 14:39 Pulse Ox 99 06/08/25 14:39 Oxygen Delivery Method Room Air 06/08/25 14:39 BMI result Body Mass Index 24.0 Tobacco/Smoking Status: Tobacco use Status Tobacco use date assessed 06/08/25 06/08/25 14:43 Patient Tobacco Use Status Never used Tobacco 06/08/25 14:43 e-Cigarette/Vaping Use Never Used 06/08/25 14:43 Thrive Assessment: Date of Thrive Assessment Date Thrive assessed 04/17/25 06/08/25 14:43 Currently or been in a relationship where the following occur: No concerns reported Const Other: Pertinent findings are in BOLD GENERAL APPEARANCE NAD, activity normal for age, well developed/ well nourished, no cyanosis, pallor, or diaphoresis. EYES lids/conjunctiva normal. EARS/NOSE/THROAT Mucous membranes moist, nares normal, lips/teeth normal uvula midline without oral pharyngeal erythema, exudate or swelling TMs normal bilaterally. No lymphangitis/lymphedema. HEAD/NECK normocephalic atraumatic, no facial trauma, neck is supple. RESPIRATORY respiratory effort normal, speaks in full sentences, no tripod position, no accessory muscle use. Lungs clear to auscultation without rhonchi, wheezes, rales CARDIAC Regular rate and rhythm, no edema. ABDOMINAL Soft, ND/NT. No evidence of fluid wave. No pulsatile masses on exam, rebound tenderness, Herron sign or pain over Mcburney's point. MUSCLES/EXTREMITIES No abnormal range of motion, no swelling. Point tenderness to right paraspinal muscles. Leg raise negative. SKIN Warm, pink and dry. No rashes, dermatoses, petechiae or lesions. NEUROLOGICAL Speech is clear and appropriate. Normal level of consciousness. Gait and coordination are normal. 5/5 strength in all extremities. PSYCH Normal mood and affect. Judgement/competence is appropriate Office Procedures Flu Questionnaire Does the patient have a severe egg allergy?: No Does the patient have severe life threatening allergies?: No Does the patient have a fever or illness today?: No Has the patient ever had Guillain-[place] Syndrome?: No Has the patient ever had any past reaction to a flu shot?: No Immunizations Fluarix [id number] (PF) 45 mcg (15 mcg x 3)/0.5 mL IM syringe Performing Provider: Helga Peters MD [place] [facility] [place] [facility] Administered by: Negrita Davis CMA on 06/08/25 15:07 Dose Route Admin Location Dispensed Lot Number Expiration Date [facility] Cinder Crusher Operator 0.5 mL IM Left Deltoid 0.5 mL [id number] 01/26/26 [id number] [employer] VIS Given Date VIS Provided VIS Publication Date 06/08/25 Single Vaccine 24 Eligibility Eligibility Date Funding Source Not [facility] Eligible 06/08/25 Private Coding Level of Care Code Est Pt Level 3 (26107) Diagnoses Pain of right hip M25.551 Laterality: right Healthcare maintenance Z00.00 Major depressive disorder with single episode, remission status unspecified F32.9 Major depression recurrence: single episode Active/Remission status: remission status unspecified Time Spent (min) 20 Assessment & Plan Assessment & Plan (1) Hip pain: Code(s): M25.559 - Pain in unspecified hip Category: Medical Qualifiers: Laterality: right Qualified Code(s): M25.551 - Pain in right hip Plan: - The patient's symptoms are assessed to be musculoskeletal in nature, as a prior X-ray showed no acute fractures. - To further investigate the etiology of her pain, a CT scan of the area will be ordered. - General blood work will be ordered to rule out an infectious process. - A referral to physical therapy will be placed, as this is expected to be most beneficial. - For pain management, the patient is advised to continue naproxen as needed and to use topical Voltaren gel up to four times a day. - A follow-up visit is scheduled in one month to review test results and assess progress. (2) Healthcare maintenance: Code(s): Z00.00 - Encounter for general adult medical examination without abnormal findings Category: Medical Plan: General labs ordered. mender hand referral will be discussed next visit. (3) MDD (major depressive disorder): Code(s): F32.9 - Major depressive disorder, single episode, unspecified Category: Medical Qualifiers: Major depression recurrence: single episode Active/Remission status: remission status unspecified Qualified Code(s): F32.9 - Major depressive disorder, single episode, unspecified Plan: - The patient reported she did not start Wellbutrin (bupropion). - The medication will be removed from her active medication list. Plan I discussed with the patient that her hip and leg pain appears to be musculoskeletal in nature, and that a previous X-ray did not show any acute fractures. I explained that while advanced imaging like a CT scan is unlikely to reveal a cause that would require surgery. I emphasized that physical therapy would likely be the most helpful intervention. We also discussed ordering general blood work to screen for infection or other underlying issues. I obtained her consent for HIV and Hepatitis C screening as part of this. For pain management, I recommended continuing naproxen and trying topical Voltaren gel. The patient agreed to receive the flu vaccine during the visit, and we scheduled a follow-up in one month to review all results and reassess her condition. Orders: Orders Comprehensive Met. Panel Today M25.559 - Pain in unspecified hip, Z00.00 - Encounter for general adult medical examination without abnormal findings PT Evaluation and Treatment Today M25.559 - Pain in unspecified hip, Z00.00 - Encounter for general adult medical examination without abnormal findings HIV Ab/Ag Today M25.559 - Pain in unspecified hip, Z00.00 - Encounter for general adult medical examination without abnormal findings Lipid Panel Today M25.559 - Pain in unspecified hip, Z00.00 - Encounter for general adult medical examination without abnormal findings Influenza [id number] Immunization Today Z23 - Encounter for immunization Complete Blood Count no Diff Today M25.559 - Pain in unspecified hip, Z00.00 - Encounter for general adult medical examination without abnormal findings Hemoglobin A1c Today M25.559 - Pain in unspecified hip, Z00.00 - Encounter for general adult medical examination without abnormal findings Hepatitis C Antibody Reflex Today M25.559 - Pain in unspecified hip, Z00.00 - Encounter for general adult medical examination without abnormal findings Vitamin D 25-OH Total Today M25.559 - Pain in unspecified hip, Z00.00 - Encounter for general adult medical examination without abnormal findings TSH reflex Free T4 Today M25.559 - Pain in unspecified hip, Z00.00 - Encounter for general adult medical examination without abnormal findings CT hip LT wo IV con Today M25.559 - Pain in unspecified hip, Z00.00 - Encounter for general adult medical examination without abnormal findings Medications: New diclofenac sodium 1% (Voltaren Arthritis Pain) apply to single elbow, wrist or hand; for hand includes palm/fingers/back of hand 2 grams topical QID 100 grams 0RF
[2025-06-08 14:39] VITALS: BP 100/66; PULSE 81; TEMP 36.3; O2SAT 99; BMI 24.0
--- OUTSIDE RECORDS SUMMARY | 2025-06-08 16:46 | XMS_ITS | Encounter Summary ---
Author Organization [facility] Address [address] [place] [address] Phone Care Team Providers Care Service Car Operator Name Role Phone Isaias Slade MD Primary Care Provider [phone] Reason for Visit * Reason Comments Med Refill Encounter Details Date Type Department Care Team ([facility] st Contact Info) Description 09/18/2021 Refill [facility] [address] [place] [address] [place] [address] Isaias Slade MD [address] [place] [address] [place] [address] Social History Tobacco Use Types Packs/Day Years [...] on filedocumented in this encounter Care Teams Service Car Operator Relationship Specialty Start Date End Date Isaias Slade MD [facility] [place] [address] PCP - General 12/05/17 10/05/24 documented as of this encounter
--- OUTSIDE RECORDS SUMMARY | 2025-06-08 16:46 | XMS_ITS | Encounter Summary ---
Author Organization [facility] Address [address] [place] [address] Phone Care Team Providers Care Financial Planning Adviser Name Role Phone Isaias Slade MD Primary Care Provider [phone] Encounter Details Date Type Department Care Team (Late st Contact Info) Description 06/13/2011 Conversion Encounter [facility] [address] [place] [address] Social History Tobacco Use Types Packs/Day Years [...] on filedocumented in this encounter Care Teams Financial Planning Adviser Relationship Specialty Start Date End Date Isaias Slade MD [address] [place] [address] PCP - General 12/05/17 10/05/24 documented as of this encounter
--- OUTSIDE RECORDS SUMMARY | 2025-06-08 16:46 | XMS_ITS | Clinical Summary ---
Author Organization [facility] Address [address] [place] [address] Phone Care Team Providers Care Klystrom Tube Tester Name Role Phone Unavailable Primary Care Provider [...] Completed 05/17/2021, 016 Procedures * Due to [place] [employer] law, this organization might not be sharing sensitive test results. Procedure Name Priority Date/Time Associated Diagnosis Comments CHLAMYDIA AND GONORRHEA, AMPLIFIED Routine 05/17/2021 11:36 AM EDT Encounter for routine child health examination without abnormal findings from Last 3 Months or Most Recently Relevant to Health Maintenance Results * Due to [place] [employer] law, this organization might not be sharing sensitive test results. * Chlamydia and Gonorrhea, Amplified (05/17/2021 11:36 AM EDT) Chlamydia Trachomatis, DNA Probe NEGATIVE (NEG) [facility] Comment: No Chlamydia Trachomatis RNA detected in this patient's sample (REFERENCE RANGE/NORMAL VALUE: NOT DETECTED) Note: This test uses chain maker hand- mediated amplification method to detect rRNA from C. Trachomatis URINE GC AMP PROBE NEGATIVE (NEG) [facility] Comment: No Neisseria Gonorrhoeae RNA detected in this patient's sample (REFERENCE RANGE/NORMAL VALUE: NOT DETECTED) NOTE: This test uses chain maker hand-mediated amplification method to detect rRNA from N.Gonorrhoeae. [...] without risk of sexual abuse. Consult the [facility] if needed. Contact [...] by [facility], a Service of [facility], [facility] [address], [place] [address] Kentrell Burr MD, Director Client [facility]# [id number] Urine (Vagina) 05/17/2021 11 :36 AM EDT 05/17/2021 8:31 PM EDT us Isaias Slade MD LAB MICROBIOLOGY - GENERAL ORDER NEAL Final Result [facility] from Last 3 Months or Most Recently Relevant to Health Maintenance
== END 2025-06-08 15:13 | disposition home or self-care (01) ==
LOC: HO.HMCH 14:27
PROVIDERS: PCP Internal Medicine; Visit Provider Internal Medicine
DX: M25.551 Pain in right hip (principal); Z00.00 Encounter for general adult medical examination without abnormal findings; F32.9 Major depressive disorder, single episode, unspecified; Z23 Encounter for immunization

== ENCOUNTER → 2025-06-08 14:26 | Outpatient (BNVA) | payer OTHER, SELFPAY | PROVIDERS: PCP Internal Medicine; Visit Provider Internal Medicine | DX: Z00.00 Encounter for general adult medical examination without abnormal findings (principal); Z23 Encounter for immunization; M25.551 Pain in right hip; F32.9 Major depressive disorder, single episode, unspecified | CPT/HCPCS: 90471; 90656 ==

== ENCOUNTER 2025-06-09 07:28 | Outpatient (REF) | payer OTHER, SELFPAY ==
--- OUTSIDE RECORDS SUMMARY | 2025-06-09 07:30 | XMS_ITS | Patient Health Record ---
Author Organization [facility] [place] Address [address] [place] [address] Care Team Providers Care Pediatric Nurse Name Role Phone Yany GATICA, Isaias Primary Care Provider Flores Polo Unavailable [phone] Allergies No Known Allergies Reason For Referral [...] Problem Acquired hammer toe of right foot ([id number] 105) Hammer toe of right foot (M20.41) Active confirmed Problem Acquired hammer toe of left foot ([id number] 103) Hammer toe of left foot (M20.42) Active confirmed Plan Of Treatment No Information Insurance Providers Payer Name Payer Address Payer Phone Subscriber Number Group Number Insured Name Patient Relationship to Insured Coverage Start Date Coverage End Date [facility] [address] [facility] [address] [id number] [place] Pope Child - Insured has Financial Responsibility Medical (General) History Surgical History Surgery Date(Month/Year)
--- OUTSIDE RECORDS SUMMARY | 2025-06-09 07:30 | XMS_ITS | Encounter Summary ---
Author Organization [facility] Address [address] [place] [id number] Phone Care Team Providers Care Explosives Truck Driver Name Role Phone Isaias Slade MD Primary Care Provider [phone] Reason for Visit * Reason Comments Med Refill Encounter Details Date Type Department Care Team ([facility] st Contact Info) Description 09/18/2021 Refill [facility] [address] [place] [address] [place] [address] Isaias Slade MD [address] [place] [address] [place] [address] Social History Tobacco Use Types Packs/Day Years [...] on filedocumented in this encounter Care Teams Explosives Truck Driver Relationship Specialty Start Date End Date Isaias Slade MD [facility] [place] [address] PCP - General 12/05/17 10/05/24 documented as of this encounter
--- OUTSIDE RECORDS SUMMARY | 2025-06-09 07:30 | XMS_ITS | Encounter Summary ---
Author Organization [facility] Address [address] [place] [phone] Phone Care Team Providers Care Mechanical Product Design Engineer Name Role Phone Isaias Slade MD Primary Care Provider [phone] Encounter Details Date Type Department Care Team (Late st Contact Info) Description 06/13/2011 Conversion Encounter [facility] [address] [facility] [place] [address] Social History Tobacco Use Types Packs/Day Years [...] on filedocumented in this encounter Care Teams Mechanical Product Design Engineer Relationship Specialty Start Date End Date Isaias Slade MD [address] [facility] [place] [address] PCP - General 12/05/17 10/05/24 documented as of this encounter
--- OUTSIDE RECORDS SUMMARY | 2025-06-09 07:30 | XMS_ITS | Clinical Summary ---
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 Procedure Name Priority Date/Time Associated Diagnosis Comments CHLAMYDIA AND GONORRHEA, AMPLIFIED Routine 05/17/2021 11:36 AM EDT Encounter for routine child health examination without abnormal findings from Last 3 Months or Most Recently Relevant to Health Maintenance Results * Due to [place] [employer] law, this organization might not be sharing sensitive test results. * Chlamydia and Gonorrhea, Amplified (05/17/2021 11:36 AM EDT) Chlamydia Trachomatis, DNA Probe NEGATIVE (NEG) [facility] Comment: No Chlamydia Trachomatis RNA detected in this patient's sample (REFERENCE RANGE/NORMAL VALUE: NOT DETECTED) Note: This test uses field hand- mediated amplification method to detect rRNA from C. Trachomatis URINE GC AMP PROBE NEGATIVE (NEG) [facility] Comment: No Neisseria Gonorrhoeae RNA detected in this patient's sample (REFERENCE RANGE/NORMAL VALUE: NOT DETECTED) NOTE: This test uses field hand-mediated amplification method to detect rRNA from [...] without risk of sexual abuse. Consult the [facility] if needed. Contact phone [...] by [facility], a Service of [facility], [facility] [address], [place] [address] Kentrell Burr MD, [facility]# [id number] Urine (Vagina) 05/17/2021 11 :36 AM EDT 05/17/2021 8:31 PM EDT us Isaias Slade MD LAB MICROBIOLOGY - GENERAL ORDER NEAL Final Result [facility] from Last 3 Months or Most Recently Relevant to Health Maintenance
[2025-06-09 07:45] LABS: Hematocrit 38.1 % (37.0-47.0); Hemoglobin 12.6 g/dl (12.0-16.0); Mean Corpuscular HGB Conc 33.1 g/dl (31.0-35.0); Mean Corpuscular Hemoglobin 26.8 pg (27.0-33.0); Mean Corpuscular Volume 80.9 fL (80.0-98.0); NRBC Abs Auto 0.000 X10*3/uL (0.0-0.012); NRBC Pct Auto 0.0 /100WBC (0.0-0.2); Platelet Count 283 X10*3/uL (160-400); Red Blood Count 4.71 X10*6/uL (4.20-5.50); White Blood Count 8.5 X10*3/uL (4.8-10.8)
[2025-06-09 08:16] LABS: Alanine Aminotransferase 11 U/L (0-31); Albumin Level 4.7 g/dL (3.5-5.0); Alkaline Phosphatase 55 U/L (39-117); Anion Gap 14 (12-20); Aspartate Amino Transferase 19 U/L (5-31); Blood Urea Nitrogen 15 mg/dL (9-16); Calcium 9.3 mg/dL (8.4-10.2); Carbon Dioxide 24 mmol/L (22-29); Chloride 106 mmol/L (96-108); Cholesterol 145 mg/dL (<200); Estimated Glomerular Filt Rate > 60; HDL Cholesterol 56 mg/dL (>40); Potassium 3.5 mmol/L (3.3-5.1); Sodium 140 mmol/L (135-145); Total Protein 7.0 g/dL (6.5-8.0); Triglycerides 50 mg/dL (<150)
[2025-06-09 08:35] LABS: HIV Num 1 0.06 S/CO (0.00-0.99); ~HepC Num1 0.07 S/CO (0.00-0.79); ~Hepatitis C Antibody Nonreactive (Nonreactive)
== END 2025-06-09 07:29 | disposition home or self-care (01) ==
LOC: HO.LAB 07:28
PROVIDERS: PCP Internal Medicine; Visit Provider Internal Medicine
DX: Z00.00 Encounter for general adult medical examination without abnormal findings (principal); M25.559 Pain in unspecified hip; Z13.6 Encounter for screening for cardiovascular disorders; Z13.1 Encounter for screening for diabetes mellitus; Z13.29 Encounter for screening for other suspected endocrine disorder
CPT/HCPCS: 36415; 80053; 80061; 82306; 83036; 84443; 85027; 86803; 87389